=== PATIENT | male | born 1950 | race Caucasian/White ===

== ENCOUNTER 2020-11-21 07:12 | Outpatient (CLI) | payer BC ==
[2020-11-21] VITALS (16 sets, daily range): BP systolic 111–136; BP diastolic 58–77; PULSE 48–66; TEMP 97.6
[~2020-11-21] VITALS: Ht 177.8 cm; Wt 101.7 kg
[2020-11-21 07:54] LABS: HEMATOCRIT 43.3 % (42.0-52.0); HEMOGLOBIN 14.4 g/dl (13.5-18.0); MEAN CELL VOLUME 93 fl (80.0-100.0); MEAN CORPUSCULAR HEMOGLOBIN 31 pg (27.0-31.0); MEAN CORPUSCULAR HGB CONC 33 g/dl (33.0-37.0); MEAN PLATELET VOLUME 11.5 fl (7.4-10.4); PLATELET COUNT 222 K/mm3 (130-400); RED BLOOD COUNT 4.66 M/mm3 (4.20-5.60); REDCELL DISTRIBUTION WIDTH-CV 13.4 % (11.5-14.5)
[2020-11-21 08:01] LABS: PROTHROMBIN TIME 11.4 SECONDS (9.7-12.8)
[2020-11-21 08:03] LABS: CALCIUM 10.4 mg/dL (8.4-10.2); CREATININE, serum 1.17 (0.66-1.25); POTASSIUM 4.9 mmol/L (3.4-5.0)
[2020-11-21 08:04] LABS: PARTIAL THROMBOPLASTIN TIME 24.9 SECONDS (26.0-37.0)
[2020-11-21] MEDS ORDERED: CRESTOR5 MG PO (08:09)
[2020-11-21] MEDS ORDERED: ZESTRIL40 MG PO (08:29)
[2020-11-21] MEDS ORDERED: TENORMIN 2525 MG/TAB PO ×2 (08:29→10:38)
[2020-11-21] MEDS ORDERED: ONE-A-DAY ESSE1 EACH PO (08:30)
[2020-11-21] MEDS ORDERED: ALDACTONE 25MG25 M1 PO (08:30)
[2020-11-21] MEDS ORDERED: FLAXSEED OIL1000 MG PO (08:31)
[2020-11-21] MEDS ORDERED: MOTRIN 400400 MG/TAB PO (08:32)
[2020-11-21] MEDS ORDERED: OCUSOFT LID SCR50 ML TP (08:33)
[2020-11-21] MEDS ORDERED: ALAWAY 10 ML10 ML OP (08:33)
[2020-11-21] MEDS ORDERED: NEOMYCIN AND PO20 ML OU (08:34)
[2020-11-21] MEDS ORDERED: DECADRON OPHTH D5 ML OP (08:35)
[2020-11-21] MEDS ORDERED: NORVASC 5MG5 MG/TAB PO (08:35)
[2020-11-21] MEDS ORDERED: TRIAMCINOLONE A15 G3 TP (08:36)
[2020-11-21] MEDS ORDERED: PLAVIX 75MG TAB75 MG PO (08:36)
[2020-11-21] MEDS ORDERED: MUCINEX1200 MG PO (08:37)
--- NOTE | 2020-11-21 09:26 | NUR ---
Report from ROHIT Chow. Ciera, lab systems analyst RN in room to set pt up for loop recorder implant. BP continues q 5 mins. Pt alert, talking with staff.
--- NOTE | 2020-11-21 09:55 | NUR ---
Dr Lewis and ROHIT Vang in room to complete loop implant.
[2020-11-21] MEDS ORDERED: NORVASC 10MG10 MG PO (10:38)
--- NOTE | 2020-11-21 12:00 | NUR ---
DC instructions reviewed with pt and . Both express understanding. Dressing to loop implant site remains clean, dry and intact. Care instructions of site discussed. Pt tolerates cup of water, refuses food prior to DC stating he will go out to eat upon discharge. Steady on feet in room. INT DC'd with catheter intact. He is assisted out wheelchair to 's car with loop equipment.
== END 2020-11-21 12:00 | disposition home or self-care (01) ==
LOC: COL.RAD 07:12
PROVIDERS: Internal Medicine Adult Congenital Heart Disease
DX: Z45.09 Encounter for adjustment and management of other cardiac device (principal); I36.1 Nonrheumatic tricuspid (valve) insufficiency; I51.7 Cardiomegaly; Z86.73 Personal history of transient ischemic attack (TIA), and cerebral infarction without residual deficits
CPT/HCPCS: C1764; J2704